=== PATIENT | male | born 1985 | race Two or more races ===

== ENCOUNTER → 2017-02-05 | Outpatient (REF) | payer OTHER ==
[~2017-02-05] MED LIST: NEXI40CA PO
== END ==
LOC: M SMT 13:18
PROVIDERS: ATTEND Urology
DX: Z30.2 Encounter for sterilization (principal)

== ENCOUNTER → 2017-04-02 | Outpatient (REF) | payer OTHER ==
[2017-04-02 13:38] LABS: SEMEN APPEARANCE OPAQUE (OPAQUE); SEMEN VISCOSITY LIQUID (LIQUID)
[2017-04-02 13:39] LABS: IMMMOTILE SPERM CENTRIFUGED ABSENT (ABSENT); IMMOTILE SPERM ABSENT (ABSENT); MOTILE SPERM ABSENT (ABSENT); MOTILE SPERM CENTRIFUGED ABSENT (ABSENT); WBC CONCENTRATION <=1 M/ml (<=1 M/ml)
== END ==
LOC: M SMT 13:31
DX: Z30.2 Encounter for sterilization (principal)

== ENCOUNTER 2019-04-03 11:35 | Emergency (ER) | payer OTHER ==
[~2019-04-03] VITALS: Ht 172.7 cm; Wt 114.8 kg
[~2019-04-03 11:35] MED LIST changes: +SERT-141 PO
[2019-04-03] MEDS ORDERED: LIDOCAINE 1% MDV 20ML VIAL SQ ONE (14:45)
--- NOTE | 2019-04-03 15:04 | REP ---
Clinical: Trauma. Laceration. Technique: AP, lateral, bilateral oblique views left third digit. Findings: Subtle soft tissue injury at the tip of the distal phalanx. The osseous structures and joint spaces are intact and normal. There is no evidence for acute fracture or dislocation. Surrounding soft tissues are unremarkable. No subcutaneous emphysema or radiodense foreign body. Impression: No acute fracture or dislocation. No foreign body. Electronically Signed by Sreedhar Adan MD 04/03/2019 02:56 P
[2019-04-03 15:51] VITALS: BP 155/92
== END 2019-04-03 15:53 | disposition home or self-care (01) ==
LOC: M ED 11:35
DX: S61.313A Laceration without foreign body of left middle finger with damage to nail, initial encounter (principal); W26.8XXA Contact with other sharp object(s), not elsewhere classified, initial encounter; Y92.018 Other place in single-family (private) house as the place of occurrence of the external cause; I10 Essential (primary) hypertension; E78.5 Hyperlipidemia, unspecified; K21.9 Gastro-esophageal reflux disease without esophagitis; Z79.899 Other long term (current) drug therapy

== ENCOUNTER → 2019-05-07 | Outpatient (CLI) | payer OTHER ==
--- NOTE | 2019-05-11 12:32 | SLEEPCENT ---
DATE OF STUDY: 05/07/2019 ORDERING PROVIDER: DANA Giles Nocturnal polysomnography was performed for evaluation of sleep physiology in this patient with excessive somnolence and nonrestorative sleep. 8 hours and 23 minutes of data were reviewed. There were 476.5 minutes of sleep identified. Sleep latency was mildly prolonged at 8 minutes. Rapid eye movement (REM) latency was mildly prolonged at 124 minutes. Sleep architecture was fairly well preserved with three REM cycles. Overall sleep efficiency was 96.5%. The electrocardiogram showed a sinus rhythm with an average heart rate of 64 beats per minute. Electroencephalogram (EEG) showed normal waveforms for awake and sleep. There were 59 respiratory events identified of 10 seconds in duration or greater for an apnea-hypopnea index of 7.4. The events were primarily obstructive, more frequent but not exclusive to the supine posture. Arousals from respiratory events occurred 4.4 times per hour, and oxygen desaturations were seen into the low 80s. There was minimal limb activity, some snoring, and remaining measures of sleep physiology were normal. IMPRESSION: Obstructive sleep apnea syndrome (G47.33). Apnea-hypopnea index 7.4. RECOMMENDATION: The patient should be encouraged to return to the sleep disorder center for pressure therapy. In the interim, alcohol and sedative avoidance should be practiced and caution exercised during the operation of motor vehicles.
== END ==
LOC: M SLEEP 19:41
PROVIDERS: ATTEND Nurse Practitioner Family
DX: G47.33 Obstructive sleep apnea (adult) (pediatric) (principal); R06.83 Snoring

== ENCOUNTER → 2019-07-18 | Outpatient (CLI) | payer OTHER ==
--- NOTE | 2019-07-28 10:34 | SLEEPCENT ---
DATE OF PROCEDURE: 07/18/2019 ORDERED BY: DANA Giles Nocturnal polysomnography was performed for the titration of pressure therapy in this patient with obstructive sleep apnea syndrome. Apnea-hypopnea index of 7.4. For testing the patient was fit with ResMed AirFit N20 nasal mask of medium size; 4 cm of water pressure were applied to the circuit and the lights were extinguished. 7 hours and 41 minutes of data were reviewed. There 438.5 minutes of sleep identified. Sleep latency was mildly prolonged at 12 minutes. Rapid eye movement (REM) latency likewise at 102 minutes. Sleep architecture was good with 3 REM cycles. Overall sleep efficiency was 96.1%. The patient's electrocardiogram showed a sinus rhythm with an average heart rate of 60 beats per minute. Electroencephalogram (EEG) showed normal waveforms for awake and sleep. Respiratory events were fully palliated with CPAP at a pressure of +7. IMPRESSION: Obstructive sleep apnea syndrome (G47.33). RECOMMENDATIONS: Nightly use of pressure therapy 7 cm of water.
== END ==
LOC: M SLEEP 20:00
PROVIDERS: ATTEND Nurse Practitioner Family
DX: G47.33 Obstructive sleep apnea (adult) (pediatric) (principal)